=== PATIENT | female | born 1955 | race Caucasian/White ===

== ENCOUNTER → 2016-07-18 | Outpatient (CLI) | payer BC ==
[~2016-07-18] MED LIST: BACITRACIN OPH3.5 GM TP; CELEXA DPS20 MG PO; COLACE-DPS100 MG PO; DECADRON-DPS4 MG PO; DILANTIN DPS100 MG PO; DULCOLAX-DPS10 MG PF; FLEXERIL-DPS10 MG PO; HYZAAR 100-12.1 EACH PO; KEFLEX250 MG PO; LOVENOX DP40 MG/0.4 SQ; MAALOX DPS30 ML PO; MICRO-K DPS10 MEQ PO; MILK OF MAGNESI10 ML PO; NORCO 5-325 TA1 EACH PO; PROTONIX40 MG PO; SENOKOT S1 TAB PO; SYNTHROID DP0.137 MG PO; THERA1 EACH PO; TYLENOL DPS325 MG PO; ZOCOR DPS40 MG PO
== END | disposition home or self-care (01) ==
LOC: RAD.S 07-11 16:00
DX: C71.1 Malignant neoplasm of frontal lobe (principal); I10 Essential (primary) hypertension; Z98.890 Other specified postprocedural states